=== PATIENT | male | born 1945 | race Caucasian/White ===

== ENCOUNTER 2017-07-25 11:47 | Emergency (ER) | payer OTHER, MEDICARE ==
--- NOTE | 2017-07-25 13:40 | EDM.PDOC ---
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 Patient states he can wiggle his fingers , and took his ring off before the swelling began to be to much. Onset: Today, Sudden Left Hand Pain Score (Numeric/FACES): 3 - Related Data Allergies Allergy/AdvReac Type Severity Reaction Status Date / Time fluticasone propionate Allergy Cannot Verified 07/25/17 12:22 [From Advair Diskus] Remember mushrooms Allergy Vomiting Uncoded 07/25/17 12:22 Home Meds: Home Meds Albuterol [Proair HFA] 2 puff INH Q4HR PRN 09/18/13 [History] Allopurinol [Zyloprim] 100 mg PO DAILY 09/18/13 [History] Aspirin [Ecotrin] 81 mg PO DAILY 09/18/13 [History] Budesonide/Formoterol [Symbicort 160-4.5 MCG] 2 puff INH DAILY 09/18/13 [History ] Lisinopril 10 mg PO DAILY 09/18/13 [History] Montelukast [Singulair] 10 mg PO DAILY 09/18/13 [History] amLODIPine [Norvasc] 5 mg PO DAILY 09/18/13 [History] Past Medical History HEENT History: Reports: Impaired Vision Cardiovascular History: Reports: Hypertension Respiratory History: Reports: Asthma, COPD Gastrointestinal History: Reports: GERD Genitourinary History: Reports: None Musculoskeletal History: Reports: None Neurological History: Reports: None Psychiatric History: Reports: PTSD Endocrine/Metabolic History: Reports: None Hematologic History: Reports: None Immunologic History: Reports: None Oncologic (Cancer) History: Reports: None Dermatologic History: Reports: None - Infectious Disease History Infectious Disease History: Reports: None - Past Surgical History Head Surgeries/Procedures: Reports: None Social & Family History - Tobacco Use Smoking Status *Q: Never Smoker Years of Tobacco use: 15 Used Tobacco, but Quit: Yes Month/Year Tobacco Last Used: 05/13/1998 Second Hand Smoke Exposure: No - Caffeine Use Caffeine Use: Reports: Soda, Tea - Alcohol Use Days Per Week of Alcohol Use: 0 - Recreational Drug Use Recreational Drug Use: No Review of Systems - Review of Systems Review Of Systems: ROS reveals no pertinent complaints other than HPI. ED EXAM, GENERAL - Physical Exam Exam: See Below Exam Limited By: No Limitations General Appearance: Alert, WD/WN, No Apparent Distress Eye Exam: Bilateral Eye: EOMI, Normal Inspection, PERRL Ears: Normal External Exam, Hearing Grossly Normal Nose: Normal Inspection Throat/Mouth: Normal Inspection, Normal Voice, No Airway Compromise Head: Atraumatic, Normocephalic Neck: Normal Inspection, Supple, Non-Tender, Full Range of Motion Respiratory/Chest: No Respiratory Distress, Lungs Clear, Normal Breath Sounds, No Accessory Muscle Use, Chest Non-Tender Cardiovascular: Normal Peripheral Pulses, Regular Rate, Rhythm, No Edema, No Gallop, No JVD, No Murmur, No Rub Peripheral Pulses: 2+: Radial (L), Radial (R) GI/Abdominal: Normal Bowel Sounds, Soft, Non-Tender, No Organomegaly, No Distention, No Abnormal Bruit, No Mass (Male) Exam: Deferred Rectal (Males) Exam: Deferred Back Exam: Normal Inspection, Full Range of Motion, NT Extremities: Joint Swelling (left hand, proximal phalangeal joints), Arm Pain ( left hand), Limited Range of Motion (left hand) Neurological: Alert, Oriented, CN II-XII Intact, Normal Cognition, Normal Gait, Normal Reflexes, No Motor/Sensory Deficits Psychiatric: Normal Affect, Normal Mood Skin Exam: Warm, Dry, Intact, No Rash, Ecchymosis (left hand hematoma) Lymphatic: No Adenopathy Course - Vital Signs Last Recorded V/S: Last Vital Signs Temp 97.2 F 07/25/17 12:16 Pulse 93 07/25/17 12:16 Resp 18 07/25/17 12:16 BP 129/62 07/25/17 12:16 Pulse Ox 95 07/25/17 12:16 - Orders/Labs/Meds Orders: Active Orders 24 hr Category Date Time Status Hand 2V Lt [CR] Urgent Exams 07/25/17 12:24 Taken Departure - Departure Time of Disposition: 13:38 Disposition: Home, Self-Care 01 Condition: Fair Clinical Impression: Hematoma - Discharge Information Instructions: Hematoma, [id number] Forms: ED Department Discharge Additional Instructions: Ice the area as tolerated Follow up with your primary care facility if no improvement Tylenol or ibuprofen as directed for pain - My Orders Last 24 Hours: My Active Orders 07/25/17 12:24 Hand 2V Lt [CR] Urgent - Assessment/Plan Last 24 Hours: My Active Orders 07/25/17 12:24 Hand 2V Lt [CR] Urgent
--- NOTE | 2017-07-25 13:50 | CR ---
CLINICAL HISTORY: 71-year-old male injured (crate fell on hand). INTERPRETATION: Chronic mild osteoarthritic changes involving the metacarpal, interphalangeal and DIP joints of the left hand. Generally good homogeneous normal, age appropriate, bone density. No sign of left hand or wrist fracture/dislocation. CONCLUSION: Osteoarthritis. No fractures.
== END 2017-07-25 13:42 | disposition home or self-care (01) ==
LOC: DL.ED 11:47
DX: S60.222A Contusion of left hand, initial encounter (principal); I10 Essential (primary) hypertension; J45.909 Unspecified asthma, uncomplicated; Z88.8 Allergy status to other drugs, medicaments and biological substances; Z91.018 Allergy to other foods; Z79.82 Long term (current) use of aspirin; Z79.899 Other long term (current) drug therapy; Z87.891 Personal history of nicotine dependence; W20.8XXA Other cause of strike by thrown, projected or falling object, initial encounter
CPT/HCPCS: 73120-LT; 99284

== ENCOUNTER 2018-06-13 07:52 | Emergency (ER) | payer MEDICARE, OTHER ==
[2018-06-13 08:52] LABS: ANION GAP 15.8; CHLORIDE,CL 101 mmol/L (101-111); SODIUM,NA 134 mmol/L (135-145)
--- NOTE | 2018-06-13 09:06 | CR ---
Clinical history: 72-year-old male bilateral lower extremity weakness and fall. Interpretation: AP lateral lumbosacral spine exam abnormal. 1. Mild L5 anterolisthesis associated with occult spondylolysis lower lumbar spine. 2. Intervertebral disc space narrowing L5-S1 and hypertrophic marginal spondylosis indicating chronic disc disease/arthritis. 3. Marginal spondylosis bridging/buttressing the lumbar spine anteriorly. 4. Generalized mild osteopenia but no compression fractures or other signs of lumbar dislocation. 5. No proximal intervertebral disc space narrowing. Symmetric spacing normal-appearing SI and hip joints. CONCLUSION: Abnormalities lower lumbar spine (see above). MRI recommended.
--- NOTE | 2018-06-13 09:07 | CR ---
Clinical history: 72-year-old male with weakness and a fall (chronic abnormalities lower lumbar spine). Interpretation: AP pelvis/hips and AP/frog lateral views of the left hip unremarkable. Homogeneous normal bone density for age and gender. Chronic disc disease/arthritis lower lumbar spine. Symmetric spacing normal-appearing SI and hip joints without arthritic degenerative change. No sign of pathologic skeletal lesion, pelvic or either hip fracture/dislocation.
--- NOTE | 2018-06-13 09:09 | CR ---
Clinical history: 72-year-old male with clinical lower extremity weakness and fall. Interpretation: AP chest unremarkable and unchanged except for less optimal inspiration would compared to 15 October 2017 exam. Normal cardiac silhouette without cephalization of flow, new signs of alveolar edema or dependent pleural fluid accumulation (external residential monitor leads and necklace). Patchy atelectasis left base. No new lung mass, hilar lymphadenopathy or focal lobar pneumonia. No pneumothorax.
[2018-06-13] MEDS ORDERED: methylPREDNISolone Sodium Succinate 125 MG/2 ML SDV IVPUSH ONE (09:25)
[2018-06-13] MEDS ORDERED: methylPREDNISolone Sodium Succinate 125 MG/2 ML SDV IM ONE (09:31)
--- NOTE | 2018-06-13 09:36 | EDM.PDOC ---
ED HPI GENERAL MEDICAL PROBLEM - General Chief Complaint: General Stated Complaint: UNABLE TO MOVE LEGS Time Seen by Provider: 06/13/18 08:10 Source of Information: Reports: Patient History Limitations: Reports: No Limitations - History of Present Illness INITIAL COMMENTS - FREE TEXT/NARRATIVE: This 72 yo male patient reports to the ED with lower extremity weakness. The patient reports he was having difficulties walking this morning. When he was going to work, the patient reports he fell on the steps and was unable to get up. The patient's son found the patient sitting on the steps at his home and brought the patient in due to increased weakness. The patient does have a history of Parkinson's and has an unstable gate. Onset: Today Duration: Constant Location: Reports: Generalized Quality: Reports: Other Severity: Moderate Improves with: Reports: None Worsens with: Reports: None Context: Reports: Other Associated Symptoms: Reports: No Other Symptoms - Related Data Allergies Allergy/AdvReac Type Severity Reaction Status Date / Time fluticasone propionate Allergy Cannot Verified 06/13/18 07:59 [From Advair Diskus] Remember mushrooms Allergy Vomiting Uncoded 06/13/18 07:59 Home Meds: Home Meds Albuterol [Proair HFA] 2 puff INH Q4HR PRN 09/18/13 [History] Allopurinol [Zyloprim] 100 mg PO DAILY 09/18/13 [History] Aspirin [Ecotrin] 81 mg PO DAILY 09/18/13 [History] Budesonide/Formoterol [Symbicort 160-4.5 MCG] 2 puff INH DAILY 09/18/13 [History ] Lisinopril 10 mg PO DAILY 09/18/13 [History] Montelukast [Singulair] 10 mg PO DAILY 09/18/13 [History] amLODIPine [Norvasc] 5 mg PO DAILY 09/18/13 [History] Omeprazole 20 mg PO BIDAC #60 cap.cr 10/16/17 [Rx] Simvastatin [Zocor] 1 tab PO BEDTIME 10/16/17 [History] Tiotropium [Spiriva HandiHaler] 1 inh INH DAILY 10/16/17 [History] rOPINIRole HCl [Requip] 1 tab PO BEDTIME PRN 10/16/17 [History] Past Medical History HEENT History: Reports: Impaired Vision Cardiovascular History: Reports: Hypertension Respiratory History: Reports: Asthma, COPD Gastrointestinal History: Reports: GERD Genitourinary History: Reports: None Musculoskeletal History: Reports: Gout Neurological History: Reports: Parkinson's Psychiatric History: Reports: Depression, PTSD Endocrine/Metabolic History: Reports: None Hematologic History: Reports: None Immunologic History: Reports: None Oncologic (Cancer) History: Reports: None Dermatologic History: Reports: None - Infectious Disease History Infectious Disease History: Reports: None - Past Surgical History Head Surgeries/Procedures: Reports: None HEENT Surgical History: Reports: Other (See Below) Other HEENT Surgeries/Procedures: surgery to have eyelids tucked in GI Surgical History: Reports: Cholecystectomy, Other (See Below) Other GI Surgeries/Procedures: opened up entrance to stomach when a . Social & Family History - Family History Family Medical History: Noncontributory - Tobacco Use Smoking Status *Q: Never Smoker Second Hand Smoke Exposure: No - Caffeine Use Caffeine Use: Reports: Soda - Recreational Drug Use Recreational Drug Use: No ED ROS GENERAL - Review of Systems Review Of Systems: ROS reveals no pertinent complaints other than HPI. ED EXAM, GENERAL - Physical Exam Exam: See Below Exam Limited By: No Limitations General Appearance: Alert, WD/WN, Moderate Distress Eye Exam: Bilateral Eye: EOMI, Normal Inspection, PERRL Ears: Normal External Exam, Normal Canal, Hearing Grossly Normal, Normal TMs Nose: Normal Inspection, Normal Mucosa, No Blood Throat/Mouth: Normal Inspection, Normal Lips, Normal Teeth, Normal Gums, Normal Oropharynx, Normal Voice, No Airway Compromise Head: Atraumatic, Normocephalic Neck: Normal Inspection, Supple, Non-Tender, Full Range of Motion Respiratory/Chest: No Respiratory Distress, Lungs Clear, Normal Breath Sounds, No Accessory Muscle Use, Chest Non-Tender Cardiovascular: Normal Peripheral Pulses, Regular Rate, Rhythm, No Edema, No Gallop, No JVD, No Murmur, No Rub GI/Abdominal: Normal Bowel Sounds, Soft, Non-Tender, No Organomegaly, No Distention, No Abnormal Bruit, No Mass (Male) Exam: Deferred Rectal (Males) Exam: Deferred Back Exam: Paraspinal Tenderness (left lower back) Extremities: Leg Pain (left hip pain with palpation) Neurological: Alert, Oriented, CN II-XII Intact, Normal Cognition, Normal Reflexes, No Motor/Sensory Deficits Psychiatric: Normal Affect, Normal Mood Skin Exam: Warm, Dry, Intact, Normal Color, No Rash Lymphatic: No Adenopathy Course - Vital Signs Last Recorded V/S: Last Vital Signs Temp 36.6 C 06/13/18 08:04 Pulse 95 06/13/18 08:04 Resp 18 06/13/18 08:04 BP 112/59 L 06/13/18 08:04 Pulse Ox 93 L 06/13/18 08:04 - Orders/Labs/Meds Orders: Active Orders 24 hr Category Date Time Status EKG Documentation Completion [RC] URGENT Care 06/13/18 08:17 Ordered UA RFX LONG AND CULT IF INDIC [URIN] Urgent Lab 06/13/18 08:18 Ordered Labs: Laboratory Tests 06/13/18 06/13/18 Range/Units 08:26 08:26 WBC 9.0 (5.0-10.0) 10^3/uL RBC 4.94 (4.6-6.2) 10^6/uL Hgb 14.5 (14.0-18.0) g/dL Hct 42.5 (40.0-54.0) % MCV 86.0 (80-100) fL MCH 29.4 (27.0-34.0) pg MCHC 34.1 (33.0-35.0) g/dL Plt Count 168 (150-450) 10^3/uL Neut % (Auto) 82.0 H (42.2-75.2) % Lymph % (Auto) 7.3 L (20.5-50.1) % [place] % (Auto) 8.6 H (2-8) % Eos % (Auto) 1.9 (1.0-3.0) % Baso % (Auto) 0.2 (0.0-1.0) % Sodium 134 L (135-145) mmol/L Potassium 3.8 (3.6-5.0) mmol/L Chloride 101 (101-111) mmol/L Carbon Dioxide 21.0 (21.0-31.0) mmol/L Anion Gap 15.8 BUN 19 H (7-18) mg/dL Creatinine 1.0 (0.6-1.3) mg/dL Est Cr Clr Drug Dosing TNP Estimated GFR (MDRD) > 60 BUN/Creatinine Ratio 19.00 Glucose 99 (74-105) mg/dL Calcium 9.1 (8.4-10.2) mg/dl Total Bilirubin 1.0 (0.2-1.0) mg/dL AST 25 (10-42) IU/L ALT 8 L (10-60) IU/L Alkaline Phosphatase 80 (42-121) IU/L Troponin I < 0.02 (0.00-0.02) ng/ml Total Protein 6.5 L (6.7-8.2) g/dl Albumin 3.7 (3.2-5.5) g/dl Globulin 2.8 Albumin/Globulin Ratio 1.32 Meds: Medications Discontinued Medications Generic Name Dose Route Start Last Admin Trade Name Freq PRN Reason Stop Dose Admin Methylprednisolone Sodium Succinate 125 mg 06/13/18 09:25 Solu-Medrol IVPUSH 06/13/18 09:26 ONETIME ONE Methylprednisolone Sodium Succinate 125 mg 06/13/18 09:31 Solu-Medrol IM 06/13/18 09:32 ONETIME ONE Departure - Departure Time of Disposition: 09:33 Disposition: Home, Self-Care 01 Condition: Fair Clinical Impression: Lower extremity weakness Qualifiers: Laterality: left Qualified Code(s): R29.898 - Other symptoms and signs involving the musculoskeletal system Low back pain Qualifiers: Chronicity: chronic Back pain laterality: unspecified Sciatica presence: with sciatica Sciatica laterality: sciatica of left side Qualified Code(s): M54.42 - Lumbago with sciatica, left side - Discharge Information *PRESCRIPTION DRUG MONITORING PROGRAM REVIEWED*: Not Applicable *COPY OF PRESCRIPTION DRUG MONITORING REPORT IN PATIENT NORY: Not Applicable Instructions: Back Pain, Adult, [id number] Forms: ED Department Discharge Care Plan Goals: The patient was advised of the examination, lab, EKG and x-ray results during the visit. The patient was given an injection of SoluMedrol while in the ED. The patient was discharged with a script for Prednisone (20 mg) #10 to take 2 by mouth daily (starting 06/14/18). If the patient has any additional symptoms or concerns, the patient should either return to the emergency department or visit his primary care facility. - My Orders Last 24 Hours: My Active Orders 06/13/18 08:17 EKG Documentation Completion [RC] URGENT 06/13/18 08:18 UA RFX LONG AND CULT IF INDIC [URIN] Urgent - Assessment/Plan Last 24 Hours: My Active Orders 06/13/18 08:17 EKG Documentation Completion [RC] URGENT 06/13/18 08:18 UA RFX LONG AND CULT IF INDIC [URIN] Urgent
== END 2018-06-13 09:42 | disposition home or self-care (01) ==
LOC: DL.ED 07:52 → EEVIPCON 07:52 → DL.ED 09:42
DX: M54.42 Lumbago with sciatica, left side (principal); R29.898 Other symptoms and signs involving the musculoskeletal system; J44.9 Chronic obstructive pulmonary disease, unspecified; Z88.8 Allergy status to other drugs, medicaments and biological substances; Z79.82 Long term (current) use of aspirin
CPT/HCPCS: 36415; 71045; 72100; 73502; 80053; 84484; 85025; 93005; 96372; 99285; J2930

== ENCOUNTER 2018-08-09 15:43 | Emergency (ER) | payer MEDICARE, OTHER ==
[2018-08-09] MEDS ORDERED: Sodium Chloride 0.9% 10 ML Syringe FLUSH PRN (16:23)
--- NOTE | 2018-08-09 16:43 | EDM.PDOC ---
ED HPI GENERAL MEDICAL PROBLEM - General Chief Complaint: Respiratory Problem Stated Complaint: HARD TIME BREATHING [id number] Time Seen by Provider: 08/09/18 17:25 Source of Information: Reports: Patient, RN, RN Notes Reviewed History Limitations: Reports: No Limitations - History of Present Illness INITIAL COMMENTS - FREE TEXT/NARRATIVE: Pt to ER with his son with c/o SOB. He states the SOB began at 1300. Patient states the SOB is much better now. He states hx of COPD. He admits to some chest tightness with the SOB and "a lot of phlegm". Patient denies recent cough , fever, chills, or being sick recently. He states he uses his inhalers as directed, and uses O2 at night. 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 OPERATIONS MANAGER: nebs - Related Data Allergies Allergy/AdvReac Type Severity Reaction Status Date / Time fluticasone propionate Allergy Cannot Verified 08/09/18 15:56 [From Advair Diskus] Remember mushrooms Allergy Vomiting Uncoded 08/09/18 15:56 Home Meds: Home Meds Albuterol [Proair HFA] 2 puff INH Q4HR PRN 09/18/13 [History] Allopurinol [Zyloprim] 100 mg PO DAILY 09/18/13 [History] Aspirin [Ecotrin] 81 mg PO DAILY 09/18/13 [History] Budesonide/Formoterol [Symbicort 160-4.5 MCG] 2 puff INH DAILY 09/18/13 [History ] Lisinopril 10 mg PO DAILY 09/18/13 [History] Montelukast [Singulair] 10 mg PO DAILY 09/18/13 [History] amLODIPine [Norvasc] 5 mg PO DAILY 09/18/13 [History] Omeprazole 20 mg PO BIDAC #60 cap.cr 10/16/17 [Rx] Simvastatin [Zocor] 1 tab PO BEDTIME 10/16/17 [History] Tiotropium [Spiriva HandiHaler] 1 inh INH DAILY 10/16/17 [History] rOPINIRole HCl [Requip] 1 tab PO BEDTIME PRN 10/16/17 [History] Carbidopa/Levodopa [Carbidopa-Levo 10-100 mg Odt] 1 tab PO TID 08/09/18 [History ] Past Medical History HEENT History: Reports: Impaired Vision Cardiovascular History: Reports: Hypertension Respiratory History: Reports: Asthma, COPD Gastrointestinal History: Reports: GERD Genitourinary History: Reports: None Musculoskeletal History: Reports: Gout Neurological History: Reports: Parkinson's Psychiatric History: Reports: Depression, PTSD Endocrine/Metabolic History: Reports: None Hematologic History: Reports: None Immunologic History: Reports: None Oncologic (Cancer) History: Reports: None Dermatologic History: Reports: None - Infectious Disease History Infectious Disease History: Reports: Chicken Pox, Measles - Past Surgical History Head Surgeries/Procedures: Reports: None HEENT Surgical History: Reports: Other (See Below) Other HEENT Surgeries/Procedures: surgery to have eyelids tucked in GI Surgical History: Reports: Cholecystectomy, Other (See Below) Other GI Surgeries/Procedures: opened up entrance to stomach when a infant. Social & Family History - Family History Family Medical History: Noncontributory - Tobacco Use Smoking Status *Q: Former Smoker Used Tobacco, but Quit: Yes Month/Year Tobacco Last Used: 04/1988 - Caffeine Use Caffeine Use: Reports: Soda - Recreational Drug Use Recreational Drug Use: No ED ROS GENERAL - Review of Systems Review Of Systems: ROS reveals no pertinent complaints other than HPI. ED EXAM, GENERAL - Physical Exam Exam: See Below Exam Limited By: No Limitations General Appearance: Alert, WD/WN, No Apparent Distress Eye Exam: Bilateral Eye: EOMI, Normal Inspection Ears: Normal External Exam, Hearing Grossly Normal Nose: Normal Inspection Throat/Mouth: Normal Inspection, Normal Voice, No Airway Compromise Head: Atraumatic, Normocephalic Neck: Normal Inspection, Supple, Non-Tender, Full Range of Motion Respiratory/Chest: No Respiratory Distress, No Accessory Muscle Use, Chest Non- Tender, Crackles (bases bilaterally) Cardiovascular: Normal Peripheral Pulses, Regular Rate, Rhythm, No Edema, No Gallop, No JVD, No Murmur, No Rub Peripheral Pulses: 2+: Radial (L), Radial (R) GI/Abdominal: Normal Bowel Sounds, Soft, Non-Tender (Male) Exam: Deferred Rectal (Males) Exam: Deferred Back Exam: Normal Inspection, Full Range of Motion, NT Extremities: Normal Inspection, Normal Range of Motion, Non-Tender, Normal Capillary Refill, No Pedal Edema Neurological: Alert, Oriented Psychiatric: Anxious Skin Exam: Warm, Dry, Intact, Normal Color, No Rash Lymphatic: No Adenopathy Course - Vital Signs Last Recorded V/S: Last Vital Signs Temp 97.5 F 08/09/18 15:59 Pulse 84 08/09/18 15:59 Resp 13 08/09/18 15:59 BP 107/58 L 08/09/18 15:59 Pulse Ox 94 L 08/09/18 15:59 - Orders/Labs/Meds Orders: Active Orders 24 hr Category Date Time Status EKG Documentation Completion [RC] STAT Care 08/09/18 16:24 Active Peripheral IV Care [RC] . DIRECTED Care 08/09/18 16:24 Active Peripheral IV Insertion Adult [OM.PC] Stat Oth 08/09/18 16:24 Ordered Labs: Laboratory Tests 08/09/18 08/09/18 08/09/18 Range/Units 16:35 16:35 16:35 WBC 10.4 H (5.0-10.0) 10^3/uL RBC 4.71 (4.6-6.2) 10^6/uL Hgb 13.9 L (14.0-18.0) g/dL Hct 41.0 (40.0-54.0) % MCV 87.0 (80-100) fL MCH 29.5 (27.0-34.0) pg MCHC 33.9 (33.0-35.0) g/dL Plt Count 172 (150-450) 10^3/uL Neut % (Auto) 77.4 H (42.2-75.2) % Lymph % (Auto) 10.2 L (20.5-50.1) % [place] % (Auto) 10.9 H (2-8) % Eos % (Auto) 1.4 (1.0-3.0) % Baso % (Auto) 0.1 (0.0-1.0) % D-Dimer, Quantitative 123 (0-400) ng/mL Sodium 137 (135-145) mmol/L Potassium 3.8 (3.6-5.0) mmol/L Chloride 103 (101-111) mmol/L Carbon Dioxide 23.0 (21.0-31.0) mmol/L Anion Gap 14.8 BUN 19 H (7-18) mg/dL Creatinine 1.1 (0.6-1.3) mg/dL Est Cr Clr Drug Dosing TNP Estimated GFR (MDRD) > 60 BUN/Creatinine Ratio 17.27 Glucose 107 H (74-105) mg/dL Lactic Acid (0.5-2.2) mmol/L Calcium 9.1 (8.4-10.2) mg/dl Total Bilirubin 0.9 (0.2-1.0) mg/dL AST 12 (10-42) IU/L ALT < 5 L (10-60) IU/L Alkaline Phosphatase 75 (42-121) IU/L Troponin I < 0.02 (0.00-0.02) ng/ml B-Natriuretic Peptide 99 (0-100) pg/ml Total Protein 6.2 L (6.7-8.2) g/dl Albumin 3.6 (3.2-5.5) g/dl Globulin 2.6 Albumin/Globulin Ratio 1.38 / Range/Units 16:35 WBC (5.0-10.0) 10^3/uL RBC (4.6-6.2) 10^6/uL Hgb (14.0-18.0) g/dL Hct (40.0-54.0) % MCV (80-100) fL MCH (27.0-34.0) pg MCHC (33.0-35.0) g/dL Plt Count (150-450) 10^3/uL Neut % (Auto) (42.2-75.2) % Lymph % (Auto) (20.5-50.1) % [place] % (Auto) (2-8) % Eos % (Auto) (1.0-3.0) % Baso % (Auto) (0.0-1.0) % D-Dimer, Quantitative (0-400) ng/mL Sodium (135-145) mmol/L Potassium (3.6-5.0) mmol/L Chloride (101-111) mmol/L Carbon Dioxide (21.0-31.0) mmol/L Anion Gap BUN (7-18) mg/dL Creatinine (0.6-1.3) mg/dL Est Cr Clr Drug Dosing Estimated GFR (MDRD) BUN/Creatinine Ratio Glucose (74-105) mg/dL Lactic Acid 1.2 (0.5-2.2) mmol/L Calcium (8.4-10.2) mg/dl Total Bilirubin (0.2-1.0) mg/dL AST (10-42) IU/L ALT (10-60) IU/L Alkaline Phosphatase (42-121) IU/L Troponin I (0.00-0.02) ng/ml B-Natriuretic Peptide (0-100) pg/ml Total Protein (6.7-8.2) g/dl Albumin (3.2-5.5) g/dl Globulin Albumin/Globulin Ratio Meds: Medications Discontinued Medications Generic Name Dose Route Start Last Admin Trade Name Freq PRN Reason Stop Dose Admin Methylprednisolone Sodium Succinate 125 mg 08/09/18 17:33 08/09/18 17:43 Solu-Medrol IVPUSH 08/09/18 17:34 125 mg ONETIME ONE Administration Sodium Chloride 10 ml 08/09/18 16:23 08/09/18 16:36 Saline Flush FLUSH 10 ml ASDIRECTED PRN Administration Keep Vein Open - Radiology Interpretation Free Text/Narrative:: Chest xray: FINDINGS: Lungs: Unremarkable. No consolidation. Pleural space: Unremarkable. No pleural effusion. No pneumothorax. Heart/Mediastinum: Unremarkable. No cardiomegaly. Bones/joints: Unremarkable. IMPRESSION: No acute findings. Thank you for allowing us to participate in the care of your patient. Dictated and Authenticated by: Hermes Coe MD 08/09/2018 4:38 PM Central Time ([place] & [place]) See rad report Departure - Departure Time of Disposition: 18:00 Disposition: Home, Self-Care 01 Condition: Fair Clinical Impression: SOB (shortness of breath) COPD (chronic obstructive pulmonary disease) Qualifiers: COPD type: chronic bronchitis Chronic bronchitis type: unspecified Qualified Code(s): J42 - Unspecified chronic bronchitis - Discharge Information *PRESCRIPTION DRUG MONITORING PROGRAM REVIEWED*: No *COPY OF PRESCRIPTION DRUG MONITORING REPORT IN PATIENT NORY: No Instructions: Chronic Obstructive Pulmonary Disease Exacerbation, [id number] , Shortness of Breath, Adult, [id number], Cough, Adult, [id number] Referrals: Abigail Musa NP [Primary Care Provider] - Forms: ED Department Discharge Additional Instructions: RX: Prednisone Continue using your nebulizers and inhalers as prescribed Follow up with your primary care facility if no improvement - My Orders Last 24 Hours: My Active Orders 08/09/18 16:24 EKG Documentation Completion [RC] STAT Peripheral IV Care [RC] . DIRECTED Peripheral IV Insertion Adult [OM.PC] Stat - Assessment/Plan Last 24 Hours: My Active Orders 08/09/18 16:24 EKG Documentation Completion [RC] STAT Peripheral IV Care [RC] . DIRECTED Peripheral IV Insertion Adult [OM.PC] Stat
[2018-08-09 17:04] LABS: ANION GAP 14.8; CHLORIDE,CL 103 mmol/L (101-111); SODIUM,NA 137 mmol/L (135-145)
[2018-08-09] MEDS ORDERED: methylPREDNISolone Sodium Succinate 125 MG/2 ML SDV IVPUSH ONE (17:33)
== END 2018-08-09 17:45 | disposition home or self-care (01) ==
LOC: DL.ED 15:43
DX: J42 Unspecified chronic bronchitis (principal); I10 Essential (primary) hypertension; Z91.018 Allergy to other foods; Z88.8 Allergy status to other drugs, medicaments and biological substances; Z79.899 Other long term (current) drug therapy; Z87.891 Personal history of nicotine dependence
CPT/HCPCS: 36415; 71045; 80053; 83605; 83880; 84484; 85025; 85379; 93005; 96374; 99283; J2930